=== PATIENT | male | born 1980 | race African-American/Black ===

== ENCOUNTER 2023-08-10 09:09 | Emergency (ER) | payer SELFPAY ==
[2023-08-10] MEDS: Lidocaine 1% 5 ML VIAL INJECT ONE (09:37)
[2023-08-10] MEDS: Bupivacaine 0.5% 10 ML SDV INJECT ONE (09:37)
[2023-08-10] MEDS: Acetaminophen/HYDROcodone 325-5 MG Tab PO ONE (10:15)
[2023-08-10] MEDS: Ondansetron 4 MG Tab.DIS PO ONE (10:15)
== END 2023-08-10 10:16 | disposition home or self-care (01) ==
LOC: MW.ED 09:09
DX: K04.7 Periapical abscess without sinus (principal); Z88.0 Allergy status to penicillin; Z86.16 Personal history of COVID-19
CPT/HCPCS: 64400; 99282; A9270; J0665; 99283; J3490

== ENCOUNTER 2023-10-02 08:18 | Emergency (ER) | payer SELFPAY ==
[2023-10-02] MEDS: Ibuprofen 600 MG Tab PO ONE (09:10)
[2023-10-02 09:37] LABS: BASOPHILS ABSOLUTE AUTO 0.01 K/uL (0.00-0.20); BASOPHILS PERCENT AUTO 0.1 % (0.0-1.0); HEMATOCRIT 37.2 % (42.0-52.0); HEMOGLOBIN 13.2 g/dL (14.0-18.0); IMMATURE GRAN ABSOLUTE AUTO 0.09 K/uL (0.00-0.05); IMMATURE GRAN PERCENT AUTO 0.6 % (0.0-0.4); LYMPHOCYTES ABSOLUTE AUTO 1.12 K/uL (1.00-4.80); LYMPHOCYTES PERCENT AUTO 7.5 % (24.0-44.0); MEAN CORPUSCULAR HEMOGLOBIN 30.6 pg (28.0-32.0); MEAN CORPUSCULAR HGB CONC 35.5 g/dL (32.0-36.0); MEAN CORPUSCULAR VOLUME 86.3 fL (83.0-99.0); MEAN PLATELET VOLUME 9.1 fL (9.4-12.4); MONOCYTES ABSOLUTE AUTO 1.48 K/uL (0.00-0.80); NEUTROPHILS ABSOLUTE AUTO 12.14 K/uL (1.80-7.70); NEUTROPHILS PERCENT AUTO 81.8 % (41.0-71.0); PLATELET COUNT,PLT 201 K/uL (150-400); RED BLOOD CELL COUNT 4.31 M/uL (4.52-5.90); WHITE BLOOD CELL COUNT,WBC 14.84 K/uL (3.9-11.3)
[2023-10-02 10:06] LABS: A/G RATIO 0.7 (0.9-1.6); BILIRUBIN TOTAL 0.5 mg/dL (0.2-1.0); CALCIUM 8.4 mg/dL (8.5-10.1); CARBON DIOXIDE,CO2 27.2 mmol/L (21.0-32.0); CREATININE 1.1 mg/dL (0.8-1.3); EST CRCL DRUG DOSING (CG) 88.1 mL/min; POTASSIUM,K 3.9 mmol/L (3.5-5.1); PROTEIN TOTAL,TP 7.3 g/dL (6.4-8.2)
[2023-10-02 10:51] LABS: C. TRACHOMATIS BY PCR NOT DETECTED; N. GONORRHOEAE BY PCR NOT DETECTED
[2023-10-02 11:02] LABS: APPEARANCE,URINE SLT CLOUDY; BILIRUBIN,URINE NEGATIVE (NEGATIVE); GLUCOSE,URINE NEGATIVE (NEGATIVE); KETONES,URINE NEGATIVE (NEGATIVE); LEUKOCYTE ESTERASE,URINE SMALL (NEGATIVE); NITRITE,URINE POSITIVE (NEGATIVE); OCCULT BLOOD,URINE MODERATE (NEGATIVE); PROTEIN,URINE 30 mg/dL (NEGATIVE)
[2023-10-02 11:03] LABS: COLOR,URINE DARK YELLOW
[2023-10-02 11:37] LABS: BACTERIA,URINE 2+ (NEGATIVE); EPITHELIAL CELLS,URINE RARE (NONE-FEW); MUCUS,URINE FEW (NONE-MOD); RBC,URINE 0-2 (0-2/HPF); WBC,URINE 13-16 (0-5/HPF)
[2023-10-02] MEDS: Levofloxacin 750 MG Tab PO STA (11:39)
== END 2023-10-02 12:10 | disposition home or self-care (01) ==
LOC: MW.ED 08:18
DX: N45.1 Epididymitis (principal); Z88.0 Allergy status to penicillin; Z86.16 Personal history of COVID-19
CPT/HCPCS: 36415; 76870; 80053; 81001; 85025; 87491; 87591; 93976; 99284; A9270; 99283

== ENCOUNTER 2025-01-22 17:30 | Emergency (ER) | payer SELFPAY ==
[2025-01-22] MEDS: Tetracaine HCl/PF 0.5% 4 ML Bottle EYEBOTH ONE (19:06)
== END 2025-01-22 20:48 | disposition home or self-care (01) ==
LOC: MW.ED 17:30
DX: H54.3 Unqualified visual loss, both eyes (principal); Z88.0 Allergy status to penicillin
CPT/HCPCS: 99283; J3490

== ENCOUNTER 2025-08-06 22:02 | Emergency (ER) | payer BC ==
[2025-08-06] MEDS: Tetracaine HCl/PF 0.5% 4 ML Bottle EYERT ONE (22:22)
[2025-08-06] MEDS: Ketorolac 30 MG/ML SDV IVPUSH ONE (22:23)
[2025-08-06] MEDS: Fluorescein 1 MG Ophth Strip EYEBOTH ONE (22:23)
[2025-08-06 22:27] LABS: BASOPHILS ABSOLUTE AUTO 0.03 K/uL (0.00-0.20); BASOPHILS PERCENT AUTO 0.3 % (0.0-1.0); EOSINOPHILS ABSOLUTE AUTO 0.06 K/uL (0.00-0.45); EOSINOPHILS PERCENT AUTO 0.6 % (0.0-6.0); IMMATURE GRAN ABSOLUTE AUTO 0.02 K/uL (0.00-0.05); IMMATURE GRAN PERCENT AUTO 0.2 % (0.0-0.4); LYMPHOCYTES ABSOLUTE AUTO 2.23 K/uL (1.00-4.80); LYMPHOCYTES PERCENT AUTO 23.1 % (24.0-44.0); MEAN PLATELET VOLUME 8.4 fL (9.4-12.4); MONOCYTES ABSOLUTE AUTO 0.94 K/uL (0.00-0.80); MONOCYTES PERCENT AUTO 9.7 % (0.0-8.0); NEUTROPHILS ABSOLUTE AUTO 6.37 K/uL (1.80-7.70); NEUTROPHILS PERCENT AUTO 66.1 % (41.0-71.0); NRBC ABSOLUTE 0.00 K/uL (0.00-0.02); NRBC PERCENT 0.0 /100WBC (0.0-0.2); PLATELET COUNT,PLT 325 K/uL (150-400); RED BLOOD CELL COUNT 4.43 M/uL (4.52-5.90); WHITE BLOOD CELL COUNT,WBC 9.65 K/uL (3.9-11.3)
[2025-08-06 22:49] LABS: BLOOD UREA NITROGEN,BUN 14.0 mg/dL (7.0-18.0); CARBON DIOXIDE,CO2 27.6 mmol/L (21.0-32.0); CHLORIDE,CL 101.0 mmol/L (98-107); CREATININE 1.0 mg/dL (0.8-1.3); EST CRCL DRUG DOSING (CG) 96.67 mL/min; GLUCOSE RANDOM 113.0 mg/dL (74-106); POTASSIUM,K 3.7 mmol/L (3.5-5.1); SODIUM,NA 140.0 mmol/L (136-148)
[2025-08-06 22:50] LABS: ESTIMATED GFR 95.0 mL/min (>60)
[2025-08-06] MEDS: Iopamidol 755 MG/ML 500 ML Multipack Bottle IVPUSH STA (23:17)
[2025-08-06] MEDS: Timolol Maleate 0.5% Ophth Soln 5 ML Bottle EYELF ONE (23:28)
[2025-08-07] MEDS ORDERED: Timolol Maleate 0.25% Ophth Soln 5 ML Bottle EYELF ONE (22:45)
== END 2025-08-07 00:31 | disposition home or self-care (01) ==
LOC: MW.ED 22:02
DX: H40.9 Unspecified glaucoma (principal); Z88.0 Allergy status to penicillin; Z79.899 Other long term (current) drug therapy
CPT/HCPCS: 36415; 70482; 80048; 85025; 96374; 96375; 99284; A9270; J1885; J2765; Q9967; J3490